=== PATIENT | female | born 1980 | race Caucasian/White ===

== ENCOUNTER 2023-02-14 07:58 | Day surgery (SDC) | payer OTHER ==
[~2023-02-14] VITALS: Ht 172.7 cm; Wt 95.4 kg
[~2023-02-14 07:58] MED LIST: ATOR20 PO; BUDESONIDE-FO10.2 G2 INH; DELTASONE20 MG PO; K-Dur20 MEQ PO; MONT10T PO; NITROGLYCERIN PR; Nexium40 MG PO; SPIRIVA RESPIMAT4 G2; TEZSPIRE210 MG/1.1; VENL37.5ER PO; VERAPAMIL ER120 M1 PO; VITAMIN D350 MC3 PO; XOPENEX HFA15 GM INH
[2023-02-14] MEDS ORDERED: OMEP20ER PO (08:36)
[2023-02-14] MEDS ORDERED: SYMBICORT 16010.2 GM (08:38)
--- NOTE | 2023-02-14 12:02 | NUR ---
02/14/23 1202 Lizbeth Mariscal IV, DC'[place] AT 1138/CATHETER WNL
== END 2023-02-14 11:47 | disposition home or self-care (01) ==
LOC: ORSCSDS 07:58
PROVIDERS: Internal Medicine Gastroenterology
PROC: 0D757ZZ Dilation of Esophagus, Via Natural or Artificial Opening (ICD-10-PCS; principal; 2023-02-14 09:30)
PROC: 0DB98ZX Excision of Duodenum, Via Natural or Artificial Opening Endoscopic, Diagnostic (ICD-10-PCS; principal; 2023-02-14 09:30)
PROC: 0DB58ZX Excision of Esophagus, Via Natural or Artificial Opening Endoscopic, Diagnostic (ICD-10-PCS; principal; 2023-02-14 09:30)
PROC: 0DB78ZX Excision of Stomach, Pylorus, Via Natural or Artificial Opening Endoscopic, Diagnostic (ICD-10-PCS; principal; 2023-02-14 09:30)
PROC: 0DBE8ZX Excision of Large Intestine, Via Natural or Artificial Opening Endoscopic, Diagnostic (ICD-10-PCS; principal; 2023-02-14 09:30)
DX: R19.4 Change in bowel habit (principal); R19.7 Diarrhea, unspecified; K29.70 Gastritis, unspecified, without bleeding; K31.7 Polyp of stomach and duodenum; K64.8 Other hemorrhoids; R10.32 Left lower quadrant pain; Z87.891 Personal history of nicotine dependence; J45.909 Unspecified asthma, uncomplicated; Z79.899 Other long term (current) drug therapy
CPT/HCPCS: 88305; 88342; J2250; J2405; J2704; J7120